=== PATIENT | male | born 1950 | race Caucasian/White ===

== ENCOUNTER 2017-03-07 21:31 | Emergency (ER) | payer OTHER ==
[~2017-03-07] VITALS: Ht 175.3 cm; Wt 100.1 kg
[~2017-03-07 21:31] MED LIST: ACID REDUCER20 MG PO; AMLODIPINE-BEN1 EAC3 PO; FLAX SEED OIL1000 MG PO; FLOMAX0.4 MG PO; IBUPROFEN800 MG; PERCOCET 5/31 TABLET PO; PRILOSEC40 MG PO; PSYLLIUM FIBE0.52 GM PO; ZOFRAN4 MG PO
[2017-03-07 22:51] LABS: ADD MIUA? NO; BILIRUBIN NEGATIVE; BLOOD NEGATIVE; COLOR STRAW ((YELLOW)); GLUCOSE (STRIP) NEGATIVE; KETONES NEGATIVE; LEUKOCYTES NEGATIVE; NITRITE NEGATIVE; PROTEIN (STRIP) NEGATIVE; SPECIFIC GRAVITY 1.017 (1.000-1.030); UROBILINOGEN 0.2 MG/DL (0.2-1.0)
[2017-03-07 23:10] LABS: HEMATOCRIT 32.1 % (38.0-50.0); MCH 28.5 PG (29.0-34.0); MCHC 32.1 G/DL (30.0-36.0); MCV 88.9 FL (86-99); MEAN PLAT.VOLUME 8.9 uM^3 (9.0-12.4); PLATELET COUNT 246 K/uL (156-360); RBC DIS.WIDTH-CV 15.7 % (11.8-14.6); RBC DIS.WIDTH-SD 51.3 % (39-53); RED BLOOD COUNT 3.61 M/uL (4.00-5.50); WHITE BLOOD COUNT 8.4 K/uL (4.1-10.2)
[2017-03-07 23:22] LABS: CHLORIDE 110 mEq/L (99-109); POTASSIUM 4.2 mEq/L (3.7-5.4); SODIUM 140 mEq/L (136-147)
[2017-03-07 23:24] LABS: GLUCOSE 148 mg/dL (70-99)
[2017-03-07 23:26] LABS: ANION GAP 9 MEQ/L (2-14); TOTAL BILIRUBIN 0.2 mg/dL (0.0-1.0)
[2017-03-07 23:28] LABS: ALKALINE PHOSPHATASE 62 IU/L (3-129); GFR ESTIMATE (CALCULATED) 40 mL/min/
[2017-03-07 23:29] LABS: UREA NITROGEN (BUN) 27 mg/dL (9-23)
[2017-03-07 23:31] LABS: LIPASE 27 U/L (1.0-51.0)
[2017-03-08] MEDS ORDERED: ZOFRAN ODT4 MG PO (00:31)
[2017-03-08] MEDS ORDERED: FLOMAX0.4 MG PO (00:31)
[2017-03-08] MEDS ORDERED: MOTRIN600 MG PO (00:31)
[2017-03-08] MEDS ORDERED: NORCO 7.5/321 TABLET PO (00:31)
[2017-03-08 00:58] VITALS: BP 150/94
== END 2017-03-08 01:01 | disposition home or self-care (01) ==
LOC: EME 21:31
PROVIDERS: Physician Assistant
DX: N13.2 Hydronephrosis with renal and ureteral calculous obstruction (principal); N28.9 Disorder of kidney and ureter, unspecified; Z87.442 Personal history of urinary calculi; I10 Essential (primary) hypertension; Z87.891 Personal history of nicotine dependence
CPT/HCPCS: 74176; 80053; 81003; 83690; 85027; 99281; 99284; J1885; J3010

== ENCOUNTER 2017-03-15 11:43 | Day surgery (SDC) | payer OTHER ==
[~2017-03-15 11:43] MED LIST changes: +MOTRIN600 MG PO; +NORCO 7.5/321 TABLET PO; +ZOFRAN ODT4 MG PO
[2017-03-15] MEDS ORDERED: LO-DOSE ASPIRIN81 M1 PO (12:39)
[2017-03-15 12:50] VITALS: BP 165/93
[2017-03-15 13:36] LABS: ANION GAP 7 MEQ/L (2-14); CHLORIDE 105 MEQ/L (99-109); GFR ESTIMATE (CALCULATED) 38 mL/min/; GLUCOSE 94 mg/dL (70-99); POTASSIUM 4.7 MEQ/L (3.7-5.4); SAMPLE HEMOLYSIS CHECK 0; SAMPLE ICTERIC CHECK 0; SAMPLE LIPEMIA CHECK 0; SODIUM 137 MEQ/L (136-147); UREA NITROGEN (BUN) 23 mg/dL (9-23)
[2017-03-15 15:24] VITALS: BP 167/88
[2017-03-15 16:00] VITALS: BP 137/74
== END 2017-03-15 16:11 | disposition home or self-care (01) ==
LOC: SDC 11:43
PROVIDERS: Urology
DX: M47.26 Other spondylosis with radiculopathy, lumbar region (principal); M51.16 Intervertebral disc disorders with radiculopathy, lumbar region; K21.9 Gastro-esophageal reflux disease without esophagitis; G47.30 Sleep apnea, unspecified; E78.5 Hyperlipidemia, unspecified; F41.8 Other specified anxiety disorders; E66.9 Obesity, unspecified; Z68.38 Body mass index [BMI] 38.0-38.9, adult; Z88.2 Allergy status to sulfonamides
CPT/HCPCS: 74000; 76000; 80048; C1769; G0103; J0690; J1100; J1170; J2405; J3010; J7050